=== PATIENT | male | born 1940 | race Caucasian/White ===

== ENCOUNTER 2017-02-08 05:26 | Inpatient (IN) | payer OTHER ==
[~2017-02-08] VITALS: Ht 177.8 cm; Wt 77.9 kg
[~2017-02-08 05:26] MED LIST: COLACE100 MG PO; GLUCOPHAGE500 MG PO; IRON325 M1 PO; METAMUCIL FIBE3.4 GM PO; TYLENOL EXTRA500 MG PO; VOLTAREN75 MG PO
[2017-02-08 06:03] VITALS: BP 155/72
[2017-02-08 06:25] LABS: POINT-OF-CARE METER ID UU13113694
[2017-02-08 09:57] LABS: POINT-OF-CARE METER ID UU13113675
[2017-02-08 10:23] LABS: HEMATOCRIT 38.5 % (38.0-50.0)
[2017-02-08 11:20] VITALS: BP 129/62
[2017-02-08 11:54] LABS: POINT-OF-CARE METER ID UU13113712
[2017-02-08 15:41] VITALS: BP 113/64
[2017-02-08 16:19] LABS: POINT-OF-CARE METER ID UU13113712
[2017-02-08 20:19] VITALS: BP 139/63
[2017-02-08 21:48] LABS: POINT-OF-CARE METER ID UU13113712
[2017-02-09 00:22] VITALS: BP 145/81
[2017-02-09 04:11] VITALS: BP 107/51
[2017-02-09 06:40] LABS: ANION GAP 10 MEQ/L (2-14); CHLORIDE 105 MEQ/L (99-109); GFR ESTIMATE (CALCULATED) > 59 mL/min/; GLUCOSE 168 mg/dL (70-99); POTASSIUM 4.2 MEQ/L (3.7-5.4); SAMPLE HEMOLYSIS CHECK 0; SAMPLE ICTERIC CHECK 0; SAMPLE LIPEMIA CHECK 0; SODIUM 139 MEQ/L (136-147); UREA NITROGEN (BUN) 24 mg/dL (9-23)
[2017-02-09 07:22] LABS: POINT-OF-CARE METER ID UU13113712
[2017-02-09 08:00] VITALS: BP 124/62
[2017-02-09 09:23] LABS: HEMATOCRIT 27.6 % (38.0-50.0); MCV 97.2 FL (86-99)
[2017-02-09 11:22] LABS: POINT-OF-CARE METER ID UU13113712
[2017-02-09 11:43] VITALS: BP 120/57
[2017-02-09 15:47] VITALS: BP 120/56
[2017-02-09 16:18] LABS: POINT-OF-CARE METER ID UU13113712
[2017-02-09 19:58] VITALS: BP 156/67
[2017-02-09 21:38] LABS: POINT-OF-CARE METER ID UU13113712
[2017-02-10 00:10] VITALS: BP 148/65
[2017-02-10 04:08] VITALS: BP 154/65
[2017-02-10 07:36] LABS: POINT-OF-CARE METER ID UU13113712
[2017-02-10 07:49] VITALS: BP 127/62
[2017-02-10 11:17] LABS: POINT-OF-CARE METER ID UU13113712
[2017-02-10 12:11] VITALS: BP 114/58
[2017-02-10 14:49] VITALS: BP 133/63
[2017-02-10 16:44] LABS: POINT-OF-CARE METER ID UU13113712
[2017-02-10 18:42] VITALS: BP 130/59
[2017-02-10 21:40] LABS: POINT-OF-CARE METER ID UU14149397
[2017-02-11] VITALS: BP 142/67
[2017-02-11 06:46] LABS: POINT-OF-CARE METER ID UU14208753
[2017-02-11 07:05] VITALS: BP 122/55
[2017-02-11] MEDS ORDERED: ELIQUIS2.5 MG PO (08:22)
[2017-02-11] MEDS ORDERED: HYDROCODON-ACE1 EAC7 PO (08:22)
[2017-02-11 11:55] LABS: POINT-OF-CARE METER ID UU14149397
[2017-02-11 15:39] VITALS: BP 107/60
[2017-02-11 16:43] LABS: POINT-OF-CARE METER ID UU14208753
== END 2017-02-11 18:49 | DRG 470 ==
LOC: 2SOUTH 05:26 → 3WEST 05:26 → 2SOUTH 09:22 → 3WEST 11:04 → 2SOUTH 11:46 → 3WEST 02-10 08:46 → 3EAST 02-10 18:11
PROVIDERS: Orthopaedic Surgery
PROC: 0SRB04Z Replacement of Left Hip Joint with Ceramic on Polyethylene Synthetic Substitute, Open Approach (ICD-10-PCS; principal; 2017-02-08)
DX: M16.12 Unilateral primary osteoarthritis, left hip (principal); E11.9 Type 2 diabetes mellitus without complications; J98.11 Atelectasis; G30.9 Alzheimer's disease, unspecified; F02.80 Dementia in other diseases classified elsewhere, unspecified severity, without behavioral disturbance, psychotic disturbance, mood disturbance, and anxiety; F32.9 Major depressive disorder, single episode, unspecified; E66.9 Obesity, unspecified; Z68.31 Body mass index [BMI] 31.0-31.9, adult
CPT/HCPCS: 71010; 73501; 73502; 76000; 80048; 82948; 85014; 85018; 97530 GP; C1713; J0690; J1815; J1885; J2250; J2405; J3010; J7030; J7050; J7120; S0020